=== PATIENT | female | born 1990 | race Caucasian/White ===

== ENCOUNTER 2020-08-08 18:23 | Emergency (ER) | payer OTHER ==
[~2020-08-08] VITALS: Ht 172.7 cm; Wt 58.1 kg
--- NOTE | 2020-08-08 18:36 | NUR ---
pt states cramping abd pain since this morning, with burping. denies nausea/vomiting. pt states mid abd pain radiating to L side. pt states L back pain for 6 months. pt denies cough/fever/sob. pt denies pain with urination. lmp 08/02. pt denies past surgeries.
[2020-08-08] MEDS ORDERED: Mylanta II UD 30ml ORAL ONE (18:45)
[2020-08-08] MEDS ORDERED: Lidocaine 2% Visc 15ml soln ORAL ONE (18:45)
[2020-08-08] MEDS ORDERED: Dicyclomine HCl 10mg/5ml oral soln ORAL ONE (18:45)
--- NOTE | 2020-08-08 18:47 | Emergency Room Report ---
History of Present Illness General Chief Complaint: Abdominal Pain Source: Patient Present Illness HPI Patient presents emergency department today complaining epigastric left upper quadrant and left lower quadrant abdominal pain that is been going on since early this morning. She states that associated with some burping seems to get better but is now progressively worse. Feels like a tightening cramping type- like pain. Patient states that she has some associated decreased bowel movements with this. Denies any vaginal discharge or vaginal bleeding. Patient is not currently sexually active. Patient's last menstrual period was 3 days ago. She denies any other medical problems. No prior surgeries. Denies any cough runny nose or sore throat or fever. Denies any dysuria urinary frequency. 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 Denies any dysuria urinary frequency. No other complaints are noted patient noted to moderate to severe. No other modifying factors. No other associated signs and symptoms. No other complaints were noted. Allergies: Coded Allergies: No Known Allergies (Unverified , 08/08/20) COVID-19 Screening Contact w/high risk pt: No Recent Travel to affected area: No Experienced COVID-19 symptoms?: No COVID-19 Testing performed BORDER PATROL AGENT: No Patient History Past Medical History: none Past Surgical History: none Pertinent Family History: none Social History: Denies: smoking, alcohol use, drug use Last Menstrual Period: 08/02/20 Now: No Reviewed Nursing Documentation: PMH: Agreed; PSxH: Agreed Nursing Documentation-PMH Past Medical History: No Stated History Review of Systems All Other Systems: negative except mentioned in HPI Physical Exam Vital Signs Date Time Temp Pulse Resp B/P (MAP) Pulse Ox O2 Delivery O2 Flow Rate FiO2 08/08/20 18:28 98.2 73 18 142/66 (91) 96 Room Air Sp02 EP Interpretation: reviewed, normal General Appearance: alert, mild distress Head: atraumatic Eyes: bilateral eye normal inspection ENT: normal ENT inspection, hearing grossly normal, normal voice Neck: normal inspection, full range of motion, supple, no bony tend Respiratory: normal inspection, lungs clear, normal breath sounds, no respiratory distress, no retraction, no wheezing Cardiovascular #1: regular rate, rhythm, no edema Gastrointestinal: normal inspection, normal bowel sounds, soft, no hernia, tenderness - Epigastric left upper quadrant and left lower quadrant Genitourinary: no CVA tenderness Musculoskeletal: normal inspection, back normal, normal range of motion Neurologic: alert, responsive, speech normal, normal inspection Psychiatric: normal inspection, judgement/insight normal, mood/affect normal Skin: no rash Medical Decision Making Diagnostic Impression: Primary Impression: Ovarian cyst Additional Impression: Pelvic pain ER Course Patient presents emergency department today complaint left-sided abdominal pain epigastric suprapubic. Pain seems to be more localized in the left lower quadrant. Differential diagnosis include colitis, diverticulitis, UTI, ovarian cyst, ovarian torsion just to name a few. Given the severity of the patient's presentation I felt this is a highly complex patient. This patient required extensive workup. Patient's laboratory work-up shows no evidence of an acute abnormality. Urine test and UA were both negative. Because of patient's left pelvic pain pelvic ultrasound was performed. Pelvic ultrasound shows evidence of a left- sided ovarian cyst likely causing patient's pain. There is no evidence of any ovarian torsion as there is good blood flow to the ovaries. Given patient's presentation I feel the patient can be discharged home if pain is controlled. Patient was given Toradol which initially did not resolve the pain subsequently patient was given morphine and a prescription for [place]. Patient feels better. Patient was given copies of her results. Recommend close outpatient follow-up with [facility]. Return to the ER if symptoms are worse. Patient is advised to follow up with primary doctor in 2-3 days and return the emergency room for any worsening symptoms and as needed. Labs Test 08/08/20 18:44 White Blood Count 9.1 K/UL (4.8-10.8) Red Blood Count 4.78 M/UL (4.20-5.40) Hemoglobin 14.5 G/DL (12.0-16.0) Hematocrit 43.4 % (37.0-47.0) Mean Corpuscular Volume 91 FL (80-99) Mean Corpuscular Hemoglobin 30.2 PG (27.0-31.0) Mean Corpuscular Hemoglobin Concent 33.3 G/DL (32.0-36.0) Red Cell Distribution Width 11.5 % (11.6-14.8) Platelet Count 238 K/UL (150-450) Mean Platelet Volume 7.5 FL (6.5-10.1) Neutrophils (%) (Auto) 66.2 % (45.0-75.0) Lymphocytes (%) (Auto) 24.0 % (20.0-45.0) Monocytes (%) (Auto) 7.6 % (1.0-10.0) Eosinophils (%) (Auto) 1.2 % (0.0-3.0) Basophils (%) (Auto) 1.0 % (0.0-2.0) Urine Color Pale yellow Urine Appearance Clear Urine pH 8 (4.5-8.0) Urine Specific [place] 1.010 (1.005-1.035) Urine Protein Negative (NEGATIVE) Urine Glucose (UA) Negative (NEGATIVE) Urine Ketones Negative (NEGATIVE) Urine Blood Negative (NEGATIVE) Urine Nitrite Negative (NEGATIVE) Urine Bilirubin Negative (NEGATIVE) Urine Urobilinogen Normal MG/DL (0.0-1.0) Urine Leukocyte Esterase Negative (NEGATIVE) Urine HCG, Qualitative Negative (NEGATIVE) Sodium Level 140 MMOL/L (136-145) Potassium Level 3.8 MMOL/L (3.5-5.1) Chloride Level 104 MMOL/L (98-107) Carbon Dioxide Level 27 MMOL/L (21-32) Anion Gap 9 mmol/L (5-15) Blood Urea Nitrogen 9 mg/dL (7-18) Creatinine 1.0 MG/DL (0.55-1.30) Estimat Glomerular Filtration Rate > 60 mL/min (>60) Glucose Level 94 MG/DL (74-106) Calcium Level 9.7 MG/DL (8.5-10.1) Total Bilirubin 0.3 MG/DL (0.2-1.0) Aspartate Amino Transf (AST/SGOT) 17 U/L (15-37) Alanine Aminotransferase (ALT/SGPT) 23 U/L (12-78) Alkaline Phosphatase 64 U/L (46-116) Total Protein 7.6 G/DL (6.4-8.2) Albumin 4.4 G/DL (3.4-5.0) Globulin 3.2 g/dL Albumin/Globulin Ratio 1.4 (1.0-2.7) Lipase 125 U/L (73-393) CT/MRI/US Diagnostic Results CT/MRI/US Diagnostic Results : Imaging Test Ordered: Pelvic ultrasound: Left ovarian cyst. Last Vital Signs Date Time Temp Pulse Resp B/P (MAP) Pulse Ox O2 Delivery O2 Flow Rate FiO2 08/08/20 18:28 98.2 73 18 142/66 (91) 96 Room Air Status: improved Disposition: HOME, SELF-CARE Condition: Stable Scripts Docusate Sodium* (COLACE*) 100 Mg Capsule 100 MG ORAL TWICE A DAY for 7 Days, CAP Prov: Juarez Arredondo MD 08/08/20 Hydrocodone/Acetaminophen 5-325* (HYDROCODONE/ACETAMINOPHEN 5-325*) 1 Each Tablet 1 TAB ORAL Q4H PRN for For Pain, #12 TAB 0 Refills Prov: Juarez Arredondo MD 08/08/20 Ibuprofen* (MOTRIN*) 600 Mg Tablet 600 MG ORAL Q6H PRN for FOR PAIN, #20 TAB 0 Refills Prov: Juarez Arredondo MD 08/08/20 Juarez Arredondo MD Aug 08, 2020 18:47
[2020-08-08 19:00] VITALS: BP 142/66
[2020-08-08 19:05] LABS: APPEARANCE,URINE CLEAR; BILIRUBIN, URINE NEGATIVE (NEGATIVE); COLOR,URINE PALE YELLOW; GLUCOSE, URINE (UA) NEGATIVE (NEGATIVE); KETONES,URINE NEGATIVE (NEGATIVE); LEUKOCYTE ESTERASE ,URINE NEGATIVE (NEGATIVE); NITRITE,URINE NEGATIVE (NEGATIVE); PH,URINE 8 (4.5-8.0); PROTEIN,URINE NEGATIVE (NEGATIVE); UROBILINOGEN,URINE NORMAL MG/DL (0.0-1.0)
[2020-08-08 19:14] LABS: ANION GAP 9 mmol/L (5-15); BLOOD UREA NITROGEN 9 mg/dL (7-18); CALCIUM 9.7 MG/DL (8.5-10.1); CARBON DIOXIDE 27 MMOL/L (21-32); CHLORIDE 104 MMOL/L (98-107); POTASSIUM 3.8 MMOL/L (3.5-5.1); SODIUM 140 MMOL/L (136-145)
[2020-08-08] MEDS ORDERED: Ketorolac 30mg Inj IV ONE (19:15)
[2020-08-08 19:17] LABS: EOSINOPHILS % (AUTO) 1.2 % (0.0-3.0); HEMATOCRIT 43.4 % (37.0-47.0); HEMOGLOBIN 14.5 G/DL (12.0-16.0); MEAN CORPUSCULAR VOLUME 91 FL (80-99); MONOCYTES % (AUTO) 7.6 % (1.0-10.0); NEUTROPHILS % (AUTO) 66.2 % (45.0-75.0); PLATELET COUNT 238 K/UL (150-450); RED BLOOD COUNT 4.78 M/UL (4.20-5.40); RED CELL DISTRIBUTION WIDTH 11.5 % (11.6-14.8); WHITE BLOOD COUNT 9.1 K/UL (4.8-10.8)
[2020-08-08 19:18] LABS: ALANINE AMINOTRANSFERASE 23 U/L (12-78); ALBUMIN 4.4 G/DL (3.4-5.0); ALBUMIN/GLOBULIN RATIO 1.4 (1.0-2.7); ALKALINE PHOSPHATASE 64 U/L (46-116); ASPARTATE AMINO TRANSFERASE 17 U/L (15-37); BILIRUBIN,TOTAL 0.3 MG/DL (0.2-1.0)
--- NOTE | 2020-08-08 19:58 | Diagnostic Imaging Report ---
EXAM: US Pelvis Transabdominal and Transvaginal, Complete and US Duplex Arterial/Venous of the Pelvis, Complete CLINICAL HISTORY: PAIN TECHNIQUE: Real-time complete transabdominal and transvaginal pelvic ultrasound with image documentation. Transvaginal imaging was used for better evaluation of the endometrium and adnexa. Real-time duplex ultrasound scan of the arterial and venous flow of the pelvis with color Doppler flow and spectral waveform analysis. COMPARISON: No previous studies. FINDINGS: Uterus/cervix: 0.5 center nabothian cyst is noted. Endometrial stripe measures 1.1 cm and is heterogeneous. Uterus measures 7.2 x 4.8 x 3.5 cm. Hypervascularity of the uterus and the cervix is noted of uncertain significance. No myometrial mass. Right ovary: Right ovary is not visualized due to bowel gas. Left ovary: Left ovary measures 3.6 x 2 x 3.3 cm and contains a 2.4 cm simple cyst, based on ultrasound criteria. Flow is demonstrated to the left ovary. No torsion. Free fluid: No free fluid. Bladder: Unremarkable as visualized. Wall is normal thickness for degree of distention. IMPRESSION: 1. The right ovary was not visualized per 2. Simple left ovarian cyst, based on ultrasound criteria. 3. Thickening of the endometrial stripe probably on the basis of phase of menstruation. 4. Nabothian cyst. 5. Hypervascularity of the uterus and the cervix of uncertain etiology. 6. Magnetic resonance imaging of the pelvis with gadolinium administration may provide additional information should be considered for follow-up.
[2020-08-08] MEDS ORDERED: Morphine Sulfate 4mg/ml Inj (IV USE ONLY) IVP ONE (20:15)
--- NOTE | 2020-08-08 20:20 | NUR ---
Patient was complaining of pain , pain assesment done, EDP aware new orders received and carried out . Will continue to monitor.
[2020-08-08] MEDS ORDERED: HYDROCODON-ACE1 EA15 ORAL (20:27)
[2020-08-08] MEDS ORDERED: IBUPROFEN600 M1 ORAL (20:27)
[2020-08-08] MEDS ORDERED: COLACE100 MG ORAL (20:27)
== END 2020-08-08 20:48 | disposition home or self-care (01) ==
LOC: EMR 19:13
DX: N83.202 Unspecified ovarian cyst, left side (principal); R10.2 Pelvic and perineal pain
CPT/HCPCS: 36415; 76830; 76856; 80053; 81003; 81025; 83690; 85025; 96374; 96375; 99284; J1885; J2270; J2405